=== PATIENT | male | born 1980 | race Caucasian/White ===

== ENCOUNTER 2017-06-29 18:57 | Emergency (ER) | payer OTHER ==
[~2017-06-29 18:57] MED LIST: PERC7.5T13 PO
[2017-06-29 19:11] VITALS: BP 158/80; PULSE 96; RESP 18; TEMP 101.8; O2SAT 96
[2017-06-29] MEDS ORDERED: ACETAMINOPHEN 500 MG CPLT PO ONE (20:00)
[2017-06-29 20:55] LABS: AUTOMATED NEUTROPHIL # 7.5 TH/MM3 (1.8-7.7); BASOPHIL % 0.4 % (0.0-2.0); EOSINOPHIL % 0.1 % (0.0-4.0); HEMATOCRIT 41.9 % (39.0-51.0); HEMOGLOBIN 14.7 GM/DL (13.0-17.0); LYMPH % 10.5 % (9.0-44.0); MEAN CELL VOLUME 86.4 FL (80.0-100.0); MEAN CORPUSCULAR HEMOGLOBIN 30.3 PG (27.0-34.0); MEAN CORPUSCULAR HGB CONC 35.1 % (32.0-36.0); MEAN PLATELET VOLUME 8.7 FL (7.0-11.0); MONO % 9.5 % (0.0-8.0); MONOCYTE # 0.9 TH/MM3 (0-0.9); NEUT % 79.5 % (16.0-70.0); PLATELET COUNT 243 TH/MM3 (150-450); RED BLOOD COUNT 4.85 MIL/MM3 (4.50-5.90); RED CELL DISTRIBUTION WIDTH 12.9 % (11.6-17.2); WHITE BLOOD COUNT 9.5 TH/MM3 (4.0-11.0)
[2017-06-29 21:32] LABS: ALBUMIN 3.4 GM/DL (3.4-5.0); ALT (GPT) 40 U/L (12-78); AST (GOT) 26 U/L (15-37); BICARBONATE 25.8 MEQ/L (21.0-32.0); BLOOD UREA NITROGEN 15 MG/DL (7-18); CALCIUM 8.9 MG/DL (8.5-10.1); CHLORIDE 101 MEQ/L (98-107); CREATININE 1.07 MG/DL (0.60-1.30); GLOMERULAR FILTRATION RATE 78 ML/MIN (>89); GLUCOSE,RANDOM 106 MG/DL (74-106); SODIUM (NA) 137 MEQ/L (136-145)
[2017-06-29 21:34] LABS: ALKALINE PHOSPHATASE 86 U/L (45-117); TOTAL BILIRUBIN ADULT 0.5 MG/DL (0.2-1.0); TOTAL PROTEIN 8.2 GM/DL (6.4-8.2)
[2017-06-29] MEDS ORDERED: ACETAMINOPHEN 325 MG TAB PO ONE (22:00)
[2017-06-29] MEDS ORDERED: ONDANSETRON HCL 4 MG/2 ML VIAL IV PUSH ONE (22:00)
[2017-06-29] MEDS ORDERED: DEXAMETHASONE SOD PHOS 4 MG/ML VIAL IV PUSH ONE (22:00)
[2017-06-29] MEDS ORDERED: KETOROLAC TROMETHAMINE 30 MG/ML (IVP) VIAL IV PUSH ONE (22:00)
[2017-06-29] MEDS ORDERED: SODIUM CHLOR 0.9% 1000 ML INJ 1,000 ML IV ONE ×2 (22:00)
[2017-06-29] MEDS ORDERED: ZOFR4TAB3 SL (22:06)
--- NOTE | 2017-06-29 22:06 | PD ---
HPI Chief Complaint: Cold / Flu Symptoms Time Seen by Provider: 21:59 Travel History International Travel<30 days: No Contact w/Intl Traveler<30days: No Traveled to known affect area: No History of Present Illness HPI The patient is a 36-year-old male who presents to the emergency department for cough and cold symptoms that started on Thursday afternoon. The patient complains of body aches, sore throat, headache, fever, chills, mild nausea, and generalized weakness. The patient did not receive an influenza vaccination this year. He does have 3 children at home and a at home, however, denies any sick contacts at home. However, he does state his kids go to daycare and school. He denies any vomiting, diarrhea, or abdominal pain. He does complain of mild nausea secondary to abdominal discomfort after drinking fluids. He also complains of a sore throat with pain upon swallowing. He denies any photophobia. He denies any posterior neck pain. Symptoms are moderate. PFSH Past Medical History Medical History: Denies Significant Hx Past Surgical History Narrative Surgical ACL repair Social History Alcohol Use: Yes (OCCASSIONAL) Tobacco Use: No Substance Use: No Allergies-Medications (Allergen,Severity, Reaction): Coded Allergies: No Known Allergies (Verified , 12/22/08) Reported Meds & Prescriptions Reported Meds & Active Scripts Active Zofran Odt (Ondansetron Odt) 4 Mg Tab 4 Mg SL Q6HR PRN Percocet 7.5-325 mg (Oxycodone-Acetaminophen 7.5-325 mg) 1 Tab 1 Tab PO Q4HPRN FOR PAIN Review of Systems Except as stated in HPI: all other systems reviewed are Neg General / Constitutional: Positive: Fever, Chills HENT: Positive: Headaches, Sore Throat Cardiovascular: No: Chest Pain or Discomfort Respiratory: No: Cough Gastrointestinal: Positive: Nausea, No: Vomiting, Diarrhea, Abdominal Pain Genitourinary: No: Dysuria Musculoskeletal: Positive: Myalgias, Arthralgias Skin: No Rash Physical Exam Narrative GENERAL: Awake, alert, pleasant 36-year-old male who appears his stated age and is in no acute respiratory distress. SKIN: Focused skin assessment warm/dry. HEAD: Atraumatic. Normocephalic. EYES: Pupils equal and round. No scleral icterus. No injection or drainage. ENT: No nasal bleeding or discharge. Oropharynx reveals erythema without exudate. NECK: Trachea midline. No JVD. No meningeal signs. CARDIOVASCULAR: Regular rate and rhythm. No murmur appreciated. Heart rate in the 90s. RESPIRATORY: No accessory muscle use. Clear to auscultation. Breath sounds equal bilaterally. GASTROINTESTINAL: Abdomen soft, non-tender, nondistended. No rebound tenderness. MUSCULOSKELETAL: No obvious deformities. No clubbing. No cyanosis. No edema. NEUROLOGICAL: Awake and alert. No obvious cranial nerve deficits. Motor grossly within normal limits. Normal speech. PSYCHIATRIC: Appropriate mood and affect; insight and judgment normal. Data Data Last Documented VS Vital Signs Date Time Temp Pulse Resp B/P (MAP) Pulse Ox O2 Delivery O2 Flow Rate FiO2 06/29/17 23:12 99.7 06/29/17 19:11 96 18 158/80 (106) 96 Orders Orders Complete Blood Count With Diff (06/29/17 19:13) Comprehensive Metabolic Panel (06/29/17 19:13) Influenzae A/B Antigen (06/29/17 19:13) Group A Rapid Strep Screen (06/29/17 19:13) Acetaminophen (Tylenol) (06/29/17 20:00) Strep Culture (Group A) (06/29/17 20:36) Dexamethasone Inj (Decadron Inj) (06/29/17 22:00) Ketorolac Inj (Toradol Inj) (06/29/17 22:00) Acetaminophen (Tylenol) (06/29/17 22:00) Sodium Chlor 0.9% 1000 Ml Inj (Ns 1000 M (06/29/17 22:00) Sodium Chlor 0.9% 1000 Ml Inj (Ns 1000 M (06/29/17 22:00) Ondansetron Inj (Zofran Inj) (06/29/17 22:00) Ed Discharge Order (06/29/17 23:12) Labs Laboratory Tests Test 06/29/17 20:36 White Blood Count 9.5 TH/MM3 Red Blood Count 4.85 MIL/MM3 Hemoglobin 14.7 GM/DL Hematocrit 41.9 % Mean Corpuscular Volume 86.4 FL Mean Corpuscular Hemoglobin 30.3 PG Mean Corpuscular Hemoglobin Concent 35.1 % Red Cell Distribution Width 12.9 % Platelet Count 243 TH/MM3 Mean Platelet Volume 8.7 FL Neutrophils (%) (Auto) 79.5 % Lymphocytes (%) (Auto) 10.5 % Monocytes (%) (Auto) 9.5 % Eosinophils (%) (Auto) 0.1 % Basophils (%) (Auto) 0.4 % Neutrophils # (Auto) 7.5 TH/MM3 Lymphocytes # (Auto) 1.0 TH/MM3 Monocytes # (Auto) 0.9 TH/MM3 Eosinophils # (Auto) 0.0 TH/MM3 Basophils # (Auto) 0.0 TH/MM3 CBC Comment DIFF FINAL Differential Comment Blood Urea Nitrogen 15 MG/DL Creatinine 1.07 MG/DL Random Glucose 106 MG/DL Total Protein 8.2 GM/DL Albumin 3.4 GM/DL Calcium Level 8.9 MG/DL Alkaline Phosphatase 86 U/L Aspartate Amino Transf (AST/SGOT) 26 U/L Alanine Aminotransferase (ALT/SGPT) 40 U/L Total Bilirubin 0.5 MG/DL Sodium Level 137 MEQ/L Potassium Level 3.8 MEQ/L Chloride Level 101 MEQ/L Carbon Dioxide Level 25.8 MEQ/L Anion Gap 10 MEQ/L Estimat Glomerular Filtration Rate 78 ML/MIN [facility] Medical Decision Making Medical Screen Exam Complete: Yes Emergency Medical Condition: Yes Medical Record Reviewed: Yes Interpretation(s) Laboratory Tests Test 06/29/17 20:36 White Blood Count 9.5 TH/MM3 Red Blood Count 4.85 MIL/MM3 Hemoglobin 14.7 GM/DL Hematocrit 41.9 % Mean Corpuscular Volume 86.4 FL Mean Corpuscular Hemoglobin 30.3 PG Mean Corpuscular Hemoglobin Concent 35.1 % Red Cell Distribution Width 12.9 % Platelet Count 243 TH/MM3 Mean Platelet Volume 8.7 FL Neutrophils (%) (Auto) 79.5 % Lymphocytes (%) (Auto) 10.5 % Monocytes (%) (Auto) 9.5 % Eosinophils (%) (Auto) 0.1 % Basophils (%) (Auto) 0.4 % Neutrophils # (Auto) 7.5 TH/MM3 Lymphocytes # (Auto) 1.0 TH/MM3 Monocytes # (Auto) 0.9 TH/MM3 Eosinophils # (Auto) 0.0 TH/MM3 Basophils # (Auto) 0.0 TH/MM3 CBC Comment DIFF FINAL Differential Comment Blood Urea Nitrogen 15 MG/DL Creatinine 1.07 MG/DL Random Glucose 106 MG/DL Total Protein 8.2 GM/DL Albumin 3.4 GM/DL Calcium Level 8.9 MG/DL Alkaline Phosphatase 86 U/L Aspartate Amino Transf (AST/SGOT) 26 U/L Alanine Aminotransferase (ALT/SGPT) 40 U/L Total Bilirubin 0.5 MG/DL Sodium Level 137 MEQ/L Potassium Level 3.8 MEQ/L Chloride Level 101 MEQ/L Carbon Dioxide Level 25.8 MEQ/L Anion Gap 10 MEQ/L Estimat Glomerular Filtration Rate 78 ML/MIN Date/Time Source Procedure Growth Status 06/29/17 20:36 Throat Group A Streptococcus Screen Pending Received 06/29/17 20:36 Nasal Washing Influenza Types A,B Antigen (NATE) - Final Positive For Flu A Antigen Complete 06/29/17 20:36 Throat Group A Streptococcus Screen (NATE) - Final Complete Differential Diagnosis Differential diagnosis includes influenza, strep pharyngitis, viral syndrome, pyelonephritis, pneumonia, dehydration. Narrative Course The patient was initially seen in triage, had an influenza screen that was positive, strep screen that was negative. IV was established and the patient was administered 2 L of IV fluids, Toradol 30 mg intravenously, Decadron 4 mg intravenously, Tylenol 650 mg orally, Zofran 4 mg intravenously. The patient is outside a 48 hour window for treatment with Tamiflu, is advised alternate Tylenol and Motrin for pain and fever. Plenty fluids to stay hydrated. Follow- up with his primary physician. He is also advised to consider receiving an influenza vaccination next year. Return if symptoms worsen or progress. Diagnosis Primary Impression: Influenza A Patient Instructions: General Instructions Additional Instructions: Please provide the patient a copy of his labs and flu results at discharge. Zofran as needed. Alternate Tylenol and Motrin for pain and fever. Plenty fluids to stay hydrated. Follow-up with a primary physician. Med/Other Pt SpecificInfo: Prescription(s) given Scripts Ondansetron Odt (Zofran Odt) 4 Mg Tab 4 MG SL Q6HR Y for Nausea/Vomiting, #7 TAB 0 Refills Prov: Aston Junior MD 06/29/17 Disposition: 01 DISCHARGE HOME Condition: Stable Aston Junior MD Jun 29, 2017 22:06
[2017-06-29 23:12] VITALS: TEMP 99.7
== END 2017-06-29 23:47 | disposition home or self-care (01) ==
LOC: NED 18:57 → NEPC 23:47
DX: J10.1 Influenza due to other identified influenza virus with other respiratory manifestations (principal)
CPT/HCPCS: 80053; 85025; 87081; 87804; 87880; 96374; 96375; 99284; J1100; J1885; J2405; J7030